=== PATIENT | male | born 1995 ===

== ENCOUNTER 2020-06-28 16:48 | Emergency (ER) | payer OTHER ==
[2020-06-28 20:48] LABS: BUN/Creatinine Ratio 6; Blood Urea Nitrogen 5 mg/dL (9-20); Calcium 9.7 mg/dL (8.4-10.2); Hemolysis Index 23
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
[2020-06-29 02:47] VITALS: BP 120/68
== END 2020-06-29 02:20 | disposition home or self-care (01) ==
LOC: ED 16:48
DX: S16.1XXA Strain of muscle, fascia and tendon at neck level, initial encounter (principal); S20.212A Contusion of left front wall of thorax, initial encounter; Z79.899 Other long term (current) drug therapy; V49.49XA Driver injured in collision with other motor vehicles in traffic accident, initial encounter; Y92.410 Unspecified street and highway as the place of occurrence of the external cause; Y93.89 Activity, other specified; Y99.8 Other external cause status
CPT/HCPCS: 36415; 71260; 74177; 80048; 99284; Q9967